=== PATIENT | female | born 1955 | race Caucasian/White ===

== ENCOUNTER → 2016-09-20 | Outpatient (CLI) | payer OTHER ==
[~2016-09-20] MED LIST: BENADRYL25 MG PO; CELEXA40 MG PO; FLEXERIL PO; IBUPROFEN 200200 M1 PO; PEPCID AC20 M1 PO
[2016-09-20 07:47] LABS: HEMATOCRIT 41.6 % (37.0-47.0); HEMOGLOBIN 14.3 gm/dL (12.0-15.0); MCHC 34.4 g/dL (28.0-37.0); RBC 4.48 mil/uL (4.20-5.00); RDW 13.8 % (10.5-14.5); WBC 7.7 thou/uL (4.0-11.0)
[2016-09-20 07:52] LABS: URINE BILIRUBIN NEGATIVE (Negative); URINE BLOOD TRACE (Negative); URINE COLOR YELLOW; URINE GLUCOSE-RANDOM* NEGATIVE (Negative); URINE KETONES NEGATIVE (Negative); URINE NITRITE NEGATIVE (Negative); URINE PROTEIN (DIPSTICK) NEGATIVE (Negative); URINE UROBILINOGEN 0.2 E.U./dl (0.2-1.0)
[2016-09-20 08:02] LABS: ANION GAP 7 mmol/L (7-16); BUN 17 mg/dL (7-18); CALCIUM 8.7 mg/dL (8.5-10.1); CHLORIDE 105 mmol/L (98-107); CO2 29 mmol/L (21-32); CREATININE 0.8 mg/dL (0.6-1.0); GLUCOSE 90 mg/dL (74-106); POTASSIUM 4.2 mmol/L (3.5-5.1); SODIUM 141 mmol/L (136-145)
[2016-09-20 08:11] LABS: ALBUMIN 3.5 g/dL (3.4-5.0); ALKALINE PHOSPHATASE 65 U/L (46-116); SGOT 20 U/L (15-37); SGPT 25 U/L (30-65); TOTAL BILIRUBIN 0.2 mg/dL (<0.1-1.0); TOTAL PROTEIN 6.8 g/dL (6.4-8.2)
[2016-09-20 08:12] LABS: CHOLESTEROL 181 mg/dL (<200); HDL CHOLESTEROL 80 mg/dL (>40); LDL CHOLESTEROL 88 mg/dL (<100); TC:HDL 2.3 Ratio (Not establshd); TRIGLYCERIDE 67 mg/dL (<150); VLDL 13 mg/dL (<40)
== END ==
LOC: LABMALL 07:14
PROVIDERS: Internal Medicine
DX: Z00.00 Encounter for general adult medical examination without abnormal findings (principal)

== ENCOUNTER → 2019-03-29 | Outpatient (CLI) | payer OTHER | LOC: RAD 12:02 | DX: Z12.31 Encounter for screening mammogram for malignant neoplasm of breast (principal) ==

== ENCOUNTER → 2019-04-11 | Outpatient (CLI) | payer OTHER ==
--- NOTE | 2019-04-11 09:17 | 2DMMODE ---
[facility] [place] [address] 2 D/M-MODE ECHOCARDIOGRAM Name: JAY LONGORIA Room #: [facility]#: [id number] Admission: 04/11/19 Attend Phys: Juan C Kramer Discharge: Date of : 53 Report #: [id number] THIS REPORT FOR: //name// APPROVED REPORT Study performed: 04/11/2019 08:25:32 EXAM: Comprehensive 2D, Doppler, and color-flow Echocardiogram Patient Location: Out-Patient Status: routine BSA: 1.63 HR: 60 bpm BP: 122/76 mmHg Rhythm: NSR Other Information Study Quality: Good Indications SVT. 2D Dimensions RVDd: 34.96 mm IVSd: 11.71 (7-11mm) LVOT Diam: 18.51 (18-24mm) LVDd: 35.63 mm PWd: 10.77 (7-11mm) Ascending Ao: 31.07 (22-36mm) LVDs: 25.09 (25-40mm) Aortic Root: 28.19 mm Volumes Left Atrial Volume (Systole) Single Plane 4CH: 32.60 mL Single Plane 2CH: 59.11 mL LA ESV Index: 31.00 mL/m2 Aortic Valve AoV Peak Joe.: 1.13 m/s AO Peak Gr.: 5.09 mmHg LVOT Max P.01 mmHg LVOT Max V: 0.87 m/s MONET Vmax: 2.07 cm2 Mitral Valve E/A Ratio: 1.4 MV Decel. Time: 177.86 ms MV E Max Joe.: 0.83 m/s [facility] [address] [place] [address] 2 D/M-MODE ECHOCARDIOGRAM Name: JAY LONGORIA Room #: [facility]#: [id number] Admission: 04/11/19 [facility]end Phys: [facility] Dis[facility]: Date of : 53 Report #: [id number] A Joe.: 0.60 m/s MV PHT: 51.58 ms IVRT: 89.97 ms Pulmonary Valve PV Peak Joe.: 1.07 m/s PV Peak Gr.: 4.56 mmHg Pulmonary Vein P Vein S: 0.59 m/s P Vein A: 0.26 m/s P Vein D: 0.55 m/s P Vein A Dur.: 69.2 msec P Vein S/D Ratio: 1.07 Tricuspid Valve TR Peak Joe.: 2.12 m/s RAP Estimate: 5.00 mmHg TR Peak Gr.: 18.00 mmHg PA Pressure: 23.00 mmHg Left Ventricle The left ventricle is normal size. There is normal LV segmental wall motion. There is normal left ventricular wall thickness. The left ventricular systolic function is normal. LVEF is 60%. The left ventricular diastolic function is normal. Right Ventricle The right ventricle is normal size. The right ventricular systolic function is normal. Atria The left atrium size is normal. The right atrium size is normal. Aortic Valve The aortic valve is normal in structure. No aortic regurgitation is present. There is no aortic valvular stenosis. Mitral Valve The mitral valve is normal in structure. Mild mitral regurgitation. No evidence of mitral valve stenosis. Tricuspid Valve The tricuspid valve is normal in structure. Mild tricuspid regurgitation. Estimated PAP is 23 mmHg. Pulmonic Valve The pulmonary valve is normal in structure. Mild pulmonic regurgitation. [facility] [address] [place] [address] 2 D/M-MODE ECHOCARDIOGRAM Name: JAY LONGORIA Room #: [facility]#: [id number] Admission: 04/11/19 Attend Phys: [facility] Dis[facility]: Date of : 53 Report #: [id number] Great Vessels The aortic root is normal in size. The ascending aorta is normal in size. IVC is normal in size and collapses >50% with inspiration. Pericardium There is no pericardial effusion. <Conclusion> 1. Normal echocardiogram with Doppler. Ejection fraction 60%. 2. Pulmonary artery pressure of 23 mmHg. 3. No pericardial effusion. <ELECTRONICALLY SIGNED> By: Tomi Mead MD, [facility] 11/916 6 6 Tomi Mead MD, [facility] /INF
== END ==
LOC: CV
DX: I08.8 Other rheumatic multiple valve diseases (principal); I47.1 Supraventricular tachycardia

== ENCOUNTER → 2020-01-31 | Outpatient (CLI) | payer OTHER ==
[2020-01-31 13:54] LABS: CREATININE 0.7 mg/dL (0.6-1.0)
== END ==
LOC: CAT 13:06
PROVIDERS: ATTEND Family Medicine
DX: K76.0 Fatty (change of) liver, not elsewhere classified (principal); K76.89 Other specified diseases of liver; E04.1 Nontoxic single thyroid nodule

== ENCOUNTER → 2020-02-11 | Outpatient (CLI) | payer OTHER | LOC: ULTRA 08:59 | PROVIDERS: ATTEND Family Medicine | DX: E04.1 Nontoxic single thyroid nodule (principal); R59.0 Localized enlarged lymph nodes ==